=== PATIENT | male | born 1960 | race African-American/Black ===

== ENCOUNTER 2021-01-13 04:46 | Inpatient (IN) | payer MEDICAID, OTHER ==
[~2021-01-13] VITALS: Ht 175.3 cm; Wt 108.8 kg
[~2021-01-13 04:46] MED LIST: [UNRECOGNIZED DRUG - CODE] PO
[2021-01-13] MEDS ORDERED: ACETAMINOPHEN 500 MG TAB PO ONE (05:00)
[2021-01-13 05:53] LABS: Basophils # (auto) 0 10 ^3/uL (0-0.2); Basophils % (auto) 0.3 % (0.0-2.0); Eosinophils # (auto) 0 10 ^3/uL (0-0.8); Hematocrit 45.5 % (41.0-53.0); Hemoglobin 15.7 g/dL (13.5-17.5); Lymphocytes # (auto) 1.5 10 ^3/uL (0.4-5.4); Lymphocytes % (auto) 23.4 % (10.0-50.0); Mean Corpuscular Hemoglobin 29.7 pg (28.0-32.0); Mean Corpuscular Hgb Conc. 34.6 g/dL (32.0-36.0); Mean Corpuscular Volume 85.9 fL (80.0-100.0); Monocytes # (auto) 0.6 10 ^3/uL (0-1.3); Monocytes % (auto) 8.8 % (0.0-12.0); Neutrophils # (auto) 4.3 10 ^3/uL (1.6-8.6); Neutrophils % (auto) 67.5 % (37.0-80.0); Nucleated Red Blood Cells % 0.2 %; White Blood Cell 6.4 10^3/uL (4.4-10.8)
[2021-01-13 06:39] LABS: Chloride 99 mmol/L (98-107); Potassium 3.6 mmol/L (3.5-5.1); Sodium 134 mmol/L (136-145)
[2021-01-13 06:53] LABS: Alanine Aminotransferase 70 U/L (16-61); Albumin 3.4 g/dL (3.4-5.0); Alkaline Phosphatase 36 U/L (45-117); Anion Gap 9 (5-15); Aspartate Aminotransferase 80 U/L (15-37); BUN/Creatinine Ratio 10.9; Bilirubin, Total 0.7 mg/dL (0.2-1.0); Blood Urea Nitrogen 14 mg/dL (7-18); Calcium 8.2 mg/dL (8.5-10.1); Carbon Dioxide 26 mmol/L (21-32); GFR African American 72 mL/min; GFR Non-African American 60 mL/min; Glucose 101 mg/dL (74-106); Total Protein 7.9 g/dL (6.4-8.2)
[2021-01-13] MEDS ORDERED: SODIUM CHLORIDE 0.9% 1,000 ML IVB ONE (08:00)
[2021-01-13] MEDS ORDERED: SODIUM CHLORIDE 0.9% 1,000 ML IV ONE (08:00)
[2021-01-13] MEDS ORDERED: IOHEXOL 350 MG/ML 100ML IJ ONE (11:59)
[2021-01-13] MEDS ORDERED: NITROGLYCERIN 0.4 MG SL TAB SL PRN (12:15)
[2021-01-13] MEDS ORDERED: MORPHINE SULFATE INJECTION 2 MG/ML SYRG IV PRN (12:15)
[2021-01-13] MEDS ORDERED: CHOLECALCIFEROL (VITD3) 2,000 UNIT CAP/TAB PO ONE (12:15)
[2021-01-13] MEDS ORDERED: AZITHROMYCIN 500MG/ 250ML 250 ML IV ONE (12:15)
[2021-01-13] MEDS ORDERED: ASCORBIC ACID 500 MG TAB PO ONE (12:15)
[2021-01-13] MEDS ORDERED: REMDESIVIR PER PHARMACY 0 ML IV SCH (12:15)
[2021-01-13] MEDS ORDERED: ACETAMINOPHEN 500 MG TAB PO PRN (12:15)
[2021-01-13] MEDS ORDERED: ZINC SULFATE 220mg CAP or TAB PO ONE (12:15)
[2021-01-13] MEDS ORDERED: PROMETHAZINE W/CODEINE 5 ML ORAL SYRUP PO PRN (12:45)
[2021-01-13 13:07] LABS: Magnesium 2.6 mg/dL (1.6-2.6)
[2021-01-13 13:16] LABS: CRP High Sensitivity 3.66 mg/dL (< 0.3)
[2021-01-13 13:27] LABS: Thyroid Stimulating Hormone 2.09 uIU/mL (0.358-3.74)
[2021-01-13 13:45] VITALS: BP 114/77
[2021-01-13] MEDS ORDERED: REMDESIVIR 200 MG in NS 210ml LOADING DOSE ADULT IV ONE (15:00)
[2021-01-13] MEDS: IPRATROPIUM BROMIDE HFA AER IN SCH ×2 (18:00→22:00)
[2021-01-13 20:00] VITALS: BP 109/65
[2021-01-13] MEDS: BUDESONIDE (INHALATION) 180 MCG IH IN SCH (22:00)
[2021-01-13] MEDS: ENOXAPARIN SOD 40 MG/0.4 ML SYRINGE SC SCH (22:21)
[2021-01-13 22:49] VITALS: BP 109/65
[2021-01-13 23:02] VITALS: BP 109/65
[2021-01-14 05:10] VITALS: BP 107/64
[2021-01-14 05:31] LABS: Basophils # (auto) 0 10 ^3/uL (0-0.2); Basophils % (auto) 0.5 % (0.0-2.0); Eosinophils # (auto) 0 10 ^3/uL (0-0.8); Eosinophils % (auto) 0.1 % (0.0-7.0); Hematocrit 42.2 % (41.0-53.0); Hemoglobin 14.5 g/dL (13.5-17.5); Lymphocytes # (auto) 1.3 10 ^3/uL (0.4-5.4); Lymphocytes % (auto) 23.9 % (10.0-50.0); Mean Corpuscular Hemoglobin 29.3 pg (28.0-32.0); Mean Corpuscular Hgb Conc. 34.4 g/dL (32.0-36.0); Mean Corpuscular Volume 85.1 fL (80.0-100.0); Monocytes # (auto) 0.5 10 ^3/uL (0-1.3); Monocytes % (auto) 8.6 % (0.0-12.0); Neutrophils # (auto) 3.7 10 ^3/uL (1.6-8.6); Neutrophils % (auto) 66.9 % (37.0-80.0); Nucleated Red Blood Cells % 0.2 %; Red Blood Cells 4.96 10^6/uL (4.5-5.90); Red Cell Distribution Width 13.9 % (11.8-14.3); White Blood Cell 5.6 10^3/uL (4.4-10.8)
[2021-01-14 05:48] LABS: Albumin 2.8 g/dL (3.4-5.0); BUN/Creatinine Ratio 12.4; Calcium 7.8 mg/dL (8.5-10.1)
[2021-01-14 05:51] LABS: Bilirubin, Total 0.6 mg/dL (0.2-1.0); Total Protein 6.7 g/dL (6.4-8.2)
[2021-01-14] MEDS ORDERED: IVERMECTIN 3 MG TAB PO ONE (07:00)
[2021-01-14 09:00] VITALS: BP 106/66
[2021-01-14] MEDS ORDERED: AZITHROMYCIN 500MG/ 250ML 250 ML IV SCH (10:00)
[2021-01-14] MEDS: ALBUTEROL SULF HFA 90MCG INH 200DOSE IN PRN ×2 (10:19→21:32)
[2021-01-14] MEDS: BUDESONIDE (INHALATION) 180 MCG IH IN SCH ×2 (10:19→21:32)
[2021-01-14] MEDS: IPRATROPIUM BROMIDE HFA AER IN SCH ×4 (10:19→22:00)
[2021-01-14] MEDS: ASCORBIC ACID 1,000 MG TAB PO SCH (10:48)
[2021-01-14] MEDS: ZINC SULFATE 220mg CAP or TAB PO SCH (10:48)
[2021-01-14] MEDS: ENOXAPARIN SOD 40 MG/0.4 ML SYRINGE SC SCH ×2 (10:49→22:21)
[2021-01-14] MEDS: CHOLECALCIFEROL (VITD3) 2,000 UNIT CAP/TAB PO SCH (10:49)
[2021-01-14] MEDS: cefTRIAXone 1GM/50ML D5W 50 ML IV SCH (10:50)
[2021-01-14] MEDS: DexAMETHasone SOD PHOS 10MG/1ML VIAL INJ IV SCH (10:50)
[2021-01-14] MEDS: AZITHROMYCIN 500MG/ 250ML 250 ML IV SCH (12:00)
[2021-01-14 13:00] VITALS: BP 103/64
[2021-01-14] MEDS ORDERED: FUROSEMIDE 20 MG/2 ML VIAL IV ONE (13:30)
[2021-01-14] MEDS: REMDESIVIR 100mg 100 MG in SODIUM CHL 0.9% 230 ML IV SCH (15:00)
[2021-01-14] MEDS ORDERED: ACETAMINOPHEN 650 mg PER 20.3 mL UD PO ONE (16:30)
[2021-01-14] MEDS ORDERED: methylPREDNISolone SOD SUCC 40 MG/ML VL IV ONE (16:30)
[2021-01-14] MEDS ORDERED: diphenhdrAMINE HCL 50 MG/1 ML VL IV ONE (16:30)
[2021-01-14 17:00] VITALS: BP 106/66
[2021-01-14] MEDS ORDERED: TOCILIZUMAB 400 MG in SODIUM CHL 0.9% 80 ML IV ONE (17:00)
[2021-01-14 22:00] VITALS: BP 112/67
[2021-01-14] MEDS: FAMOTIDINE 20 MG TAB PO SCH (22:21)
[2021-01-15 05:00] VITALS: BP 113/72
[2021-01-15] MEDS: IPRATROPIUM BROMIDE HFA AER IN SCH ×3 (06:12→18:00)
[2021-01-15] MEDS: ALBUTEROL SULF HFA 90MCG INH 200DOSE IN PRN (06:12)
[2021-01-15] MEDS: BUDESONIDE (INHALATION) 180 MCG IH IN SCH (06:12)
[2021-01-15 07:50] VITALS: BP 100/61
[2021-01-15 09:00] VITALS: BP 100/61
[2021-01-15] MEDS ORDERED: ACETAMINOPHEN 650 mg PER 20.3 mL UD PO ONE (10:00)
[2021-01-15] MEDS ORDERED: diphenhdrAMINE HCL 50 MG/1 ML VL IV ONE (10:00)
[2021-01-15] MEDS: cefTRIAXone 1GM/50ML D5W 50 ML IV SCH (10:12)
[2021-01-15] MEDS: DexAMETHasone SOD PHOS 10MG/1ML VIAL INJ IV SCH (10:13)
[2021-01-15] MEDS: ZINC SULFATE 220mg CAP or TAB PO SCH (10:13)
[2021-01-15] MEDS: IVERMECTIN 3 MG TAB PO SCH (10:13)
[2021-01-15] MEDS: FAMOTIDINE 20 MG TAB PO SCH ×2 (10:13→21:31)
[2021-01-15] MEDS: FUROSEMIDE 20 MG/2 ML VIAL IV SCH (10:13)
[2021-01-15] MEDS: ENOXAPARIN SOD 40 MG/0.4 ML SYRINGE SC SCH ×2 (10:14→21:31)
[2021-01-15] MEDS: ASCORBIC ACID 1,000 MG TAB PO SCH (10:14)
[2021-01-15] MEDS: CHOLECALCIFEROL (VITD3) 2,000 UNIT CAP/TAB PO SCH (10:14)
[2021-01-15] MEDS ORDERED: TOCILIZUMAB 400 MG in SODIUM CHL 0.9% 80 ML IV ONE (10:30)
[2021-01-15] MEDS ORDERED: ASPI-543 PO (11:31)
[2021-01-15 11:49] LABS: Albumin 3.3 g/dL (3.4-5.0); Calcium 9.2 mg/dL (8.5-10.1); Magnesium 2.7 mg/dL (1.6-2.6); Potassium 3.6 mmol/L (3.5-5.1)
[2021-01-15 11:53] LABS: Lactic Acid w/Reflex 3.7 mmol/L (0.4-2.0)
[2021-01-15 11:58] LABS: BUN/Creatinine Ratio 11.9; Bilirubin, Total 0.4 mg/dL (0.2-1.0); CRP High Sensitivity 7.16 mg/dL (< 0.3); Total Protein 8.7 g/dL (6.4-8.2)
[2021-01-15] MEDS: AZITHROMYCIN 500MG/ 250ML 250 ML IV SCH (12:04)
[2021-01-15 13:00] VITALS: BP 101/61
[2021-01-15] MEDS: REMDESIVIR 100mg 100 MG in SODIUM CHL 0.9% 230 ML IV SCH (15:02)
[2021-01-15 17:00] VITALS: BP 95/62
[2021-01-15 22:00] VITALS: BP 120/68
[2021-01-16] MEDS: ALBUTEROL SULF HFA 90MCG INH 200DOSE IN PRN ×3 (00:06→18:30)
[2021-01-16] MEDS: BUDESONIDE (INHALATION) 180 MCG IH IN SCH ×3 (00:06→18:30)
[2021-01-16] MEDS: IPRATROPIUM BROMIDE HFA AER IN SCH ×5 (00:06→21:51)
[2021-01-16 05:00] VITALS: BP 109/66
[2021-01-16 06:09] LABS: Albumin 2.9 g/dL (3.4-5.0); Calcium 8.4 mg/dL (8.5-10.1); Potassium 3.8 mmol/L (3.5-5.1)
[2021-01-16 06:13] LABS: BUN/Creatinine Ratio 19.4; Bilirubin, Total 0.5 mg/dL (0.2-1.0); Total Protein 7.2 g/dL (6.4-8.2)
[2021-01-16] MEDS: cefTRIAXone 1GM/50ML D5W 50 ML IV SCH (08:36)
[2021-01-16] MEDS: DexAMETHasone SOD PHOS 10MG/1ML VIAL INJ IV SCH (08:36)
[2021-01-16] MEDS: AZITHROMYCIN 500MG/ 250ML 250 ML IV SCH (08:37)
[2021-01-16] MEDS: FUROSEMIDE 20 MG/2 ML VIAL IV SCH (08:37)
[2021-01-16] MEDS: ZINC SULFATE 220mg CAP or TAB PO SCH (08:37)
[2021-01-16] MEDS: CHOLECALCIFEROL (VITD3) 2,000 UNIT CAP/TAB PO SCH (08:38)
[2021-01-16] MEDS: ASCORBIC ACID 1,000 MG TAB PO SCH (08:38)
[2021-01-16] MEDS: IVERMECTIN 3 MG TAB PO SCH (08:38)
[2021-01-16] MEDS: FAMOTIDINE 20 MG TAB PO SCH ×2 (08:38→22:30)
[2021-01-16] MEDS: ENOXAPARIN SOD 40 MG/0.4 ML SYRINGE SC SCH ×2 (08:38→22:30)
[2021-01-16 09:15] VITALS: BP 109/66
[2021-01-16 09:16] VITALS: BP 101/62
[2021-01-16 13:00] VITALS: BP 112/61
[2021-01-16] MEDS: REMDESIVIR 100mg 100 MG in SODIUM CHL 0.9% 230 ML IV SCH (15:45)
[2021-01-16 16:36] VITALS: BP 99/58
[2021-01-16 22:00] VITALS: BP 94/58
[2021-01-17 05:00] VITALS: BP 107/66
[2021-01-17 06:47] LABS: Basophils # (auto) 0 10 ^3/uL (0-0.2); Basophils % (auto) 0.3 % (0.0-2.0); Eosinophils # (auto) 0 10 ^3/uL (0-0.8); Hemoglobin 15.2 g/dL (13.5-17.5); Lymphocytes # (auto) 1.3 10 ^3/uL (0.4-5.4); Lymphocytes % (auto) 10.4 % (10.0-50.0); Mean Corpuscular Hemoglobin 29.4 pg (28.0-32.0); Mean Corpuscular Hgb Conc. 34.5 g/dL (32.0-36.0); Mean Corpuscular Volume 85.3 fL (80.0-100.0); Monocytes # (auto) 1.1 10 ^3/uL (0-1.3); Monocytes % (auto) 9.2 % (0.0-12.0); Neutrophils # (auto) 9.8 10 ^3/uL (1.6-8.6); Neutrophils % (auto) 80.1 % (37.0-80.0); Nucleated Red Blood Cells % 0.1 %; Red Blood Cells 5.16 10^6/uL (4.5-5.90); White Blood Cell 12.2 10^3/uL (4.4-10.8)
[2021-01-17 07:11] LABS: Albumin 2.8 g/dL (3.4-5.0); BUN/Creatinine Ratio 20.4; Calcium 8.2 mg/dL (8.5-10.1)
[2021-01-17 07:18] LABS: Bilirubin, Total 0.5 mg/dL (0.2-1.0); Total Protein 6.6 g/dL (6.4-8.2)
[2021-01-17 09:00] VITALS: BP 109/60
[2021-01-17] MEDS: ZINC SULFATE 220mg CAP or TAB PO SCH (12:16)
[2021-01-17] MEDS: DexAMETHasone SOD PHOS 10MG/1ML VIAL INJ IV SCH (12:16)
[2021-01-17] MEDS: FUROSEMIDE 20 MG/2 ML VIAL IV SCH (12:16)
[2021-01-17] MEDS: FAMOTIDINE 20 MG TAB PO SCH ×2 (12:17→23:50)
[2021-01-17] MEDS: CHOLECALCIFEROL (VITD3) 2,000 UNIT CAP/TAB PO SCH (12:17)
[2021-01-17] MEDS: ASCORBIC ACID 1,000 MG TAB PO SCH (12:17)
[2021-01-17] MEDS: AZITHROMYCIN 500MG/ 250ML 250 ML IV SCH (12:17)
[2021-01-17] MEDS: ENOXAPARIN SOD 40 MG/0.4 ML SYRINGE SC SCH ×2 (12:18→23:50)
[2021-01-17 13:09] VITALS: BP 102/69
[2021-01-17] MEDS: REMDESIVIR 100mg 100 MG in SODIUM CHL 0.9% 230 ML IV SCH (15:20)
[2021-01-17 17:00] VITALS: BP 108/67
[2021-01-17] MEDS: BUDESONIDE (INHALATION) 180 MCG IH IN SCH (18:38)
[2021-01-17] MEDS: IPRATROPIUM BROMIDE HFA AER IN SCH ×2 (18:38→22:36)
[2021-01-17] MEDS: ALBUTEROL SULF HFA 90MCG INH 200DOSE IN PRN (18:38)
[2021-01-17 22:00] VITALS: BP 100/63
[2021-01-18 05:00] VITALS: BP 93/52
[2021-01-18] MEDS: ALBUTEROL SULF HFA 90MCG INH 200DOSE IN PRN ×2 (07:04→11:21)
[2021-01-18] MEDS: IPRATROPIUM BROMIDE HFA AER IN SCH ×2 (07:04→11:20)
[2021-01-18] MEDS: BUDESONIDE (INHALATION) 180 MCG IH IN SCH (07:05)
[2021-01-18] MEDS: DexAMETHasone SOD PHOS 10MG/1ML VIAL INJ IV SCH (08:43)
[2021-01-18] MEDS: FUROSEMIDE 20 MG/2 ML VIAL IV SCH (08:43)
[2021-01-18] MEDS: ENOXAPARIN SOD 40 MG/0.4 ML SYRINGE SC SCH (08:44)
[2021-01-18] MEDS: ZINC SULFATE 220mg CAP or TAB PO SCH (08:44)
[2021-01-18] MEDS: AZITHROMYCIN 500MG/ 250ML 250 ML IV SCH (08:44)
[2021-01-18] MEDS: CHOLECALCIFEROL (VITD3) 2,000 UNIT CAP/TAB PO SCH (08:44)
[2021-01-18] MEDS: ASCORBIC ACID 1,000 MG TAB PO SCH (08:44)
[2021-01-18] MEDS: FAMOTIDINE 20 MG TAB PO SCH (08:44)
[2021-01-18 09:00] VITALS: BP 102/65
[2021-01-18] MEDS ORDERED: CHOL1CAP47 PO (10:46)
[2021-01-18] MEDS ORDERED: ASCO10003 PO (10:46)
[2021-01-18 12:30] VITALS: BP 108/61
== END 2021-01-18 12:50 | disposition home or self-care (01) | DRG 720 ==
LOC: ER 04:46 → TELE 12:08 → TELE-EAST 18:33
PROVIDERS: ADMIT Nurse Practitioner Acute Care; ATTEND Internal Medicine Pulmonary Disease
PROC: XW033E5 Introduction of Remdesivir Anti-infective into Peripheral Vein, Percutaneous Approach, New Technology Group 5 (ICD-10-PCS; principal; 2021-01-13)
PROC: XW033H5 Introduction of Tocilizumab into Peripheral Vein, Percutaneous Approach, New Technology Group 5 (ICD-10-PCS; 2021-01-13)
DX: A41.89 Other specified sepsis (principal); J96.01 Acute respiratory failure with hypoxia; J12.82 Pneumonia due to coronavirus disease 2019; U07.1 COVID-19; D68.59 Other primary thrombophilia; J98.11 Atelectasis; R74.8 Abnormal levels of other serum enzymes; E66.9 Obesity, unspecified; D89.839 Cytokine release syndrome, grade unspecified; Z68.35 Body mass index [BMI] 35.0-35.9, adult; D69.6 Thrombocytopenia, unspecified; E55.9 Vitamin D deficiency, unspecified; R79.89 Other specified abnormal findings of blood chemistry
CPT/HCPCS: 36415; 36600; 71045; 71275; 80053; 82306; 82728; 82805; 83605; 83615; 83735; 83880; 84443; 84484; 85025; 85379; 86141; 86850; 86900; 86901; 87040; 87426; 93005; 94640; 96361; 96365; 96367; G0378; J0696; J1100